=== PATIENT | male | born 1985 | race Caucasian/White ===

== ENCOUNTER 2025-01-14 09:46 | Outpatient (AMB) | payer BC, SELFPAY ==
--- NOTE | 2025-01-14 09:52 | A.OFFPC_ITS ---
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 ?? Prior PCP:?No PCP [employer] Last office visit/CPE:?No PCP Acute issue(s):? Tinnitus Both ears. [employer] in [employer] since 2011. Uses hearing protection but still significantly loud noises. Hearing test in . ?? PMHx:? H/o Back injury during covid - seems resolved. SurgHx:? None FHx:? Sister Gall Bladder. SocHx: Nonsmoker. etOH None. No drugs PFSH Medical History (Updated 01/14/25 @ 10:18 by Pedro Luis Rodriguez) No pertinent family history No pertinent past medical history Surgical History (Updated 01/14/25 @ 10:03 by Viri Álvarez MA) No pertinent past surgical history Social History (Updated 01/14/25 @ 10:02 by Viri Álvarez MA) Household Members: Spouse Both parents involved: No Caregiver staying overnight: No Housing: House Are you a primary critical care registered nurse to a significant other at home: No Do you presently have visiting nurse or other home services: No 75 years or older and lives alone: No Alcohol intake: never Patient Tobacco Use Status: Never used Tobacco e-Cigarette/Vaping Use: Never Used Second Hand Smoke Exposure: No service: No Current occupational status: employed 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 1. Little interest or pleasure in doing things: not at all 2. Feeling down, depressed, or hopeless: not at all 3. Trouble falling or staying asleep, or sleeping too much: not at all 4. Feeling tired or having little energy: not at all 5. Poor appetite or overeating: not at all 6. Feeling bad about yourself - or that you are a failure or have let yourself or your family down: not at all 7. Trouble concentrating on things, such as reading the newspaper or watching television: not at all 8. Moving or speaking so slowly that other people could have noticed. Or the opposite - being so fidgety or restless that you have been moving around a lot more than usual: not at all 9. Thoughts that you would be better off or of hurting yourself in some way: not at all Total score: 0 Depression Screening Interpretation: Negative Depression Screening Done: Yes 40571 - PHQ-9 Billing: Yes Source: Developed by Drs. Aníbal Ramos, Magdalena Hassan, Artur Perez and colleagues, with an educational lynda from [employer]. Thrive Questionnaire Date Thrive assessed: 01/14/25 I am a: Patient What is your living situation today?: I have a steady place to live Within the past 12 months, did the food you bought not last and you didn't have the money to get more?: Never true Within the past 12 months, did you worry whether your food would run out before you got money to buy more?: Never true Do you have trouble paying for medicines?: No Do you have trouble getting transportation to medical appointments?: No Do you have trouble paying your heating and electricity bill?: No Do you have trouble taking care of your child, family member or friend?: No Do you have trouble with day-to-day activities such as bathing, preparing meals, shopping, managing finances, etc.?: No Are you currently unemployed and looking for a job?: No Are you interested in more education?: No Please select the resources that you would like help with: None Currently or been in a relationship where the following occur: No concerns reported THRIVE Score: 0 AUDIT C Alcohol Use Questionnaire (AUDIT-C) 1. How often do you have a drink containing alcohol?: Never 3. How often do you have six or more drinks on one occasion?: Never Total Score: 0 CHRISTY-7 AMB Questionnaire CHRISTY-7 Date CHRISTY - 7 assessed: 01/14/25 Feeling nervous, anxious, or on edge: 0 = Not at all Not being able to stop or control worryin = Not at all Worrying too much about different things: 0 = Not at all Trouble relaxin = Not at all Being so restless that it is hard to sit still: 0 = Not at all Becoming easily annoyed or irritable: 0 = Not at all Feeling afraid as if something awful might happen: 0 = Not at all Total CHRISTY-7 score (0-4 normal; 5-9 mild; 10-14 moderate; 15-21 severe): 0 Source: Developed by Drs. Aníbal Ramos, Magdalena Hassan, Artur Perez and colleagues, with an educational lynda from [employer]. CHRISTY-7 Assessment Billing HCRISTY-7 Assessment Tool: CHRISTY-7 Assessment 48993 Review of Systems Const Denies chills, Denies fatigue, Denies fever(s), Denies headache(s) and Denies weakness ENT Denies dizziness and Denies headache(s) Card Denies chest pain, Denies lightheadedness, Denies dyspnea and Denies other (Palpitations) Resp Denies cough, Denies dyspnea, Denies wheezing and Denies other ( shortness of breath) Musc Denies numbness and Denies tingling Neuro Denies dizziness, Denies headache(s), Denies numbness, Denies tingling, Denies paresthesias and Denies weakness Psych Denies anxiety and Denies depression Endo Denies fatigue Aller/Immun Denies wheezing Physical exam (Primary Care) Vital Signs: Last Vital Signs Temp 97.5 F 01/14/25 09:57 Pulse 70 01/14/25 09:57 Resp 13 01/14/25 09:57 BP 139/76 01/14/25 09:57 Pulse Ox 100 01/14/25 09:57 Oxygen Delivery Method Room Air 01/14/25 09:57 BMI result Body Mass Index 28.8 Tobacco/Smoking Status: Tobacco use Status Tobacco use date assessed 01/14/25 01/14/25 09:56 Patient Tobacco Use Status Never used Tobacco 01/14/25 10:02 e-Cigarette/Vaping Use Never Used 01/14/25 10:02 PHQ-9: PHQ-9 Score PHQ-9: Total score 0 01/14/25 10:03 Depression Screening Interpretation: Negative Thrive Assessment: Date of Thrive Assessment Date Thrive assessed 01/14/25 01/14/25 09:56 Currently or been in a relationship where the following occur: No concerns reported Const General: no acute distress and well developed Nutritional Appearance: well nourished Orientation/consciousness: patient oriented x3 HENMT Head: Yes normocephalic and Yes atraumatic Eyes General: appearance normal, both eyes and all related structures Pupils: Equal, round and reactive pupils present EOM: EOMs intact bilaterally Resp Effort & Inspection: normal respiratory effort Auscultation: clear to auscultation bilaterally Cardio Rate: regular rate Rhythm: regular rhythm Heart sounds: S1 normal heart sound present, S2 normal heart sound present, no gallops, no murmurs and no rubs Neuro General: patient oriented x3 and gait normal Cranial nerves: Yes Equal, round and reactive pupils present Psych Affect: normal affect Coding Level of Care Code New Pt Level 3 (34917) Diagnoses Tinnitus H93.19 Laboratory exam ordered as part of routine general medical examination Z00.00 Additional Codes CHRISTY-7 Assessment Billing - CHRISTY-7 Assessment Tool: CHRISTY-7 Assessment [id number] ([id number]) PHQ-9 - 10774 - PHQ-9 Billing: Yes ([id number]) Assessment & Plan Assessment & Plan (1) Tinnitus: Code(s): H93.19 - Tinnitus, unspecified ear Category: Medical Plan: Tinnitus Both ears. Deanne in [employer] since 2011. Uses hearing protection but still significantly loud noises. Hearing test in . Will send him for new hearing testing Already using white noise and I encouraged this May need referral to ENT (2) Laboratory exam ordered as part of routine general medical examination: Code(s): Z00.00 - Encounter for general adult medical examination without abnormal findings Category: Medical Plan: Check labs Orders: Orders Comprehensive [place]. Panel Fast Today Z00.00 - Encounter for general adult medical examination without abnormal findings Lipid Panel Today Z00.00 - Encounter for general adult medical examination without abnormal findings TSH reflex Free T4 Today Z00.00 - Encounter for general adult medical examination without abnormal findings UA CC w/rflx Micro + Cult Today Z00.00 - Encounter for general adult medical examination without abnormal findings Microalbumin, Random (w Creat) Today I10 - Essential (primary) hypertension
[2025-01-14 09:57] VITALS: BP 139/76; PULSE 70; RESP 13; TEMP 36.4; O2SAT 100; BMI 28.8
== END 2025-01-14 10:23 | disposition home or self-care (01) ==
LOC: HO.HMCFM 09:47
PROVIDERS: PCP Family Medicine; Visit Provider Family Medicine
DX: H93.19 Tinnitus, unspecified ear (principal); Z00.00 Encounter for general adult medical examination without abnormal findings

== ENCOUNTER → 2025-01-14 09:46 | Outpatient (BNVA) | payer OTHER, SELFPAY | PROVIDERS: PCP Family Medicine; Visit Provider Family Medicine | DX: Z00.00 Encounter for general adult medical examination without abnormal findings (principal); H93.19 Tinnitus, unspecified ear; I10 Essential (primary) hypertension | CPT/HCPCS: 96127 ==